=== PATIENT | female | born 1985 | race Caucasian/White ===

== ENCOUNTER 2017-03-19 14:39 | Emergency (ER) | payer MEDICAID ==
[2017-03-19 15:15] VITALS: PULSE 70; PULSE 71
[2017-03-19 15:18] VITALS: BP 113/67; PULSE 65
[2017-03-19 15:20] VITALS: PULSE 70
--- NOTE | 2017-03-19 15:21 | PD ---
HPI Chief Complaint contractions Date Seen: March 19, 2017 Time Seen: 15:35 Travel History International Travel<30 Days: No Contact w/Intl Traveler<30Days: No History of Present Illness HPI 31 y/o at 26/3 weeks presents for contractions. States she started feeling frequent contractions a couple weeks ago. Then they increased in frequency. Having 1-4/hour. Otherwise, denies any other symptoms. No vaginal bleeding, loss of fluids. Endorses movement. Denies any dysuria. No chest pain, SOB , abdominal pain, leg pain/edema. No problems with this . 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 Is busy, but mainly in classes all day. She follows with Celsa Kunz. Para: 1 History Past Medical History Medical History: Denies Significant Hx Obstetric History Obstetric History at term Past Surgical History Surgical History: No Previous Surgery Family History Family History: Negative Social History Alcohol Use: No Tobacco Use: No Substance Abuse: No Review of Systems General / Constitutional: Weight Gain, No: Fever, Weight Loss, Chills Eyes: No: Diploplia, Blurred Vision HENT: No: Headaches, Vertigo Cardiovascular: No: Irregular Rhythm, Chest Pain or Discomfort, Palpitations Respiratory: No: Cough, Short of Breath Gastrointestinal: No: Nausea, Vomiting, Diarrhea, Abdominal Pain, Constipation Genitourinary: No: Urgency, Frequency, Dysuria, Pelvic Pain, Vaginal Bleeding Musculoskeletal: No: Limited ROM, Weakness Skin: No Rash, No Itching Neurologic: No: Weakness, Dizziness Psychiatric: No: Anxiety, Depression Physical Exam Narrative GENERAL: Well-nourished, well-developed patient. SKIN: Warm and dry. HEAD: Normocephalic and atraumatic. EYES: No scleral icterus. No injection or drainage. ENT: No nasal drainage noted. Mucous membranes pink. Airway patent. NECK: Supple, trachea midline. No JVD. CARDIOVASCULAR: Regular rate and rhythm without murmurs, gallops, or rubs. RESPIRATORY: Breath sounds equal bilaterally. No accessory muscle use. BREASTS: Bilateral exam showed no masses , no retractions, no nipple discharge. ABDOMEN/GI: Abdomen soft, non-tender, bowel sounds present, no rebound, no guarding Gravid to 26 weeks size GENITOURINARY: External Genitalia: intact and normal in appearance Cervix: posterior Dilatation: fingertip Effacement: 0 Station: -2 Presentation: vertex Membranes: intact Uterine Contractions: none FHT's: Category: 1 Baseline: 140 Reactive: yes Variability: yes Decels: moderate EXTREMITIES: No cyanosis or edema. BACK: Nontender without obvious deformity. No CVA tenderness. NEUROLOGICAL: Awake and alert. Motor and sensory grossly within normal limits. Five out of 5 muscle strength in all muscle groups. Normal speech. Data Data Vital Signs Reviewed: Yes MDM Medical Record Reviewed: Yes Interpretation(s) 31 y/o at 26/3 presents for contractions. Category 1 FHT, occasional contraction. Cervical exam: 0/0/-2 Vitals stable. No signs of labor - UA - Continue FHT Narrative Course / MDM UA normal; negative for infection or protein Category 1 FHT. No signs of labor, closed cervix - Discharge home - F/u with Celsa Kunz - Return to ED if worsening pain, vaginal bleeding, gush of fluids. - Continue to rest and hydration Diagnosis Diagnosis: Primary Impression: [place]'s contraction Additional Impression: 26 weeks gestation of Disposition: DISCHARGE HOME Condition: Stable Patient Instructions: General Instructions, Abdominal Pain in (ED) Tej Puri MD R1 March 19, 2017 15:21
[2017-03-19 15:25] VITALS: PULSE 66; PULSE 67
[2017-03-19 15:30] VITALS: RESP 17
[2017-03-19 15:45] LABS: BLOOD, URINE NEG (NEG); GLUCOSE,URINE NEG (NEG); KETONE, URINE NEG (NEG); NITRITE,URINE NEG (NEG); SQUAMOUS EPITHELIAL CELL URINE <1 /hpf (0-5); URINE COLOR LIGHT-YELLOW (YELLW/STRAW)
[2017-03-19 15:47] LABS: COMMENT (UR) CULT NOT INDICATED; CULTURE IF INDICATED CULT NOT INDICATED
--- NOTE | 2017-03-19 15:59 | PD ---
History of Present Illness Date Seen: March 19, 2017 History of Present Illness This patient is a 31-year-old white female at 26 weeks followed by Celsa Kunz for care. She presents complaining of contractions 1-4 contractions an hour , she denies bleeding or ruptured membranes. Baby is active. heart rate tracing is reactive. No contractions noted. Cervix is closed internal os barely fingertip at the external os. Posterior and thick , urinalysis negative patient having soft tissue strain from overactivity. She is in school in chiropractic studies as well as has a 2-year-old , she is very busy. She is advised to increase rest fluids Tylenol when necessary and follow- up with her OB provider. Patient seen with family practice resident and the reevaluation plan Nicholas Pedraza II, MD March 19, 2017 15:59
== END 2017-03-19 16:47 | disposition home or self-care (01) ==
LOC: HOBED 14:39
DX: O47.02 False labor before 37 completed weeks of gestation, second trimester (principal); Z3A.26 26 weeks gestation of pregnancy
CPT/HCPCS: 81001; 99284

== ENCOUNTER 2017-06-14 11:08 | Emergency (ER) | payer MEDICAID ==
[~2017-06-14] VITALS: Ht 172.7 cm; Wt 73.9 kg
[2017-06-14] MEDS ORDERED: Prenatal Vitamin PO (11:35)
--- NOTE | 2017-06-14 12:00 | PD ---
HPI Chief Complaint Bleeding Date Seen: Jun 14, 2017 Time Seen: 12:00 Travel History International Travel<30 Days: No Contact w/Intl Traveler<30Days: No Known Affected Area: No History of Present Illness HPI Patient is a 31-year-old at 38 weeks and 6 days who presents to OB triage with vaginal bleeding. Patient states that vaginal bleeding started Sunday, following intercourse. She compares amount of bleeding to a last day of a period. She used pad. She also noticed clots in toilet. She states bleeding stopped until this morning. Today's bleeding is only noticeable when she wipes; she reports bloody streaks in mucus. Patient reports vomiting 1 on Sunday. Nausea has persisted all week. Patient also reports loose stool throughout the week. She denies fever and chills. Patient denies fluid leakage. Patient has been experiencing contractions since 26 weeks. At baseline, she contracts 2-4 times per hour. Patient states that on Sunday, she felt contractions every 5 minutes. Positive movement. Today she reports cramping pain. The patient experienced lightheadedness at Celsa Kunz's office earlier today. Para: 1 : 2 History Past Medical History Narrative Medical Asthma Mitral valve prolapse Obstetric History Obstetric History G1 full-term, vaginal delivery, patient pushed for 3 hours G2 current, no complications, documented ultrasound at 19 weeks shows anterior placenta Past Surgical History Surgical History: No Previous Surgery Family History Family History: Negative Social History Alcohol Use: No Tobacco Use: No Substance Abuse: No Allergies-Medications (Allergen,Severity, Reaction): Coded Allergies: No Known Allergies (Unverified , 06/14/17) Home Meds Reported Medications [ Vitamin] No Conflict Check1 Tab PO DAILY 06/14/17 Review of Systems General / Constitutional: No: Fever, Chills Eyes: No: Diploplia, Blurred Vision, Visual changes, Pain, Photophobia HENT: No: Headaches, Vertigo, Lightheadedness Cardiovascular: No: Irregular Rhythm, Chest Pain or Discomfort, Palpitations, Tachycardia, Syncope, Varicosities, Edema, Cyanosis Respiratory: No: Cough, Short of Breath, Other Gastrointestinal: Nausea, Vomiting, Diarrhea (loose stool) Genitourinary: Vaginal Bleeding, No: Decreased Urinary Output, Oliguria Musculoskeletal: Cramping, No: Limited ROM, Weakness, Edema, Pain Skin: No Rash, No Itching, No Dryness, No Lumps, No Change in Pigmentation, No Change in Nails, No Alopecia, No Lesions Neurologic: No: Weakness, Dizziness, Syncope, Focal Abnormalities, Coordination Problem, Headache, Slurred Speech, Seizures Psychiatric: No: Depression, Suicidal Ideations, Homicidal Ideation Endocrine: No: Heat Intolerance, Cold Intolerance, Polydipsia, Polyuria, Other Physical Exam Narrative GENERAL: Well-nourished, well-developed patient. SKIN: Warm and dry. HEAD: Normocephalic and atraumatic. EYES: No scleral icterus. No injection or drainage. ENT: No nasal drainage noted. Mucous membranes pink. Airway patent. NECK: Supple, trachea midline. No JVD. CARDIOVASCULAR: Regular rate and rhythm without murmurs, gallops, or rubs. RESPIRATORY: Breath sounds equal bilaterally. No accessory muscle use. ABDOMEN/GI: Abdomen soft, non-tender, bowel sounds present, no rebound, no guarding Gravid to 38 weeks size GENITOURINARY: External Genitalia: intact and normal in appearance Cervix: no signs up bleeding; some white, mucus discharge Dilatation: 0-1 cm Membranes: Intact Uterine Contractions: None FHT's: Category: 1 Baseline: 130 Reactive: + Variability: Moderate Decels: None EXTREMITIES: No cyanosis or edema. BACK: Nontender without obvious deformity. No CVA tenderness. NEUROLOGICAL: Awake and alert. Motor and sensory grossly within normal limits. Five out of 5 muscle strength in all muscle groups. Normal speech. Data Data Vital Signs Reviewed: Yes MDM Plan Patient is a 31-year-old at 38 weeks and 6 days who presents to OB triage with vaginal bleeding. * Speculum - no blood visualized. * Cervical check - see PE. * Discharge home. Diagnosis Diagnosis: Primary Impression: Postcoital bleeding Additional Impression: 39 weeks gestation of Disposition: DISCHARGE HOME Condition: Good Adali Dorman MD R1 Jun 14, 2017 12:00
== END 2017-06-14 12:16 | disposition home or self-care (01) ==
LOC: HOBED 11:08
DX: O26.853 Spotting complicating pregnancy, third trimester (principal); Z3A.39 39 weeks gestation of pregnancy
CPT/HCPCS: 59025